=== PATIENT | female | born 1985 | race Caucasian/White ===

== ENCOUNTER 2020-01-15 13:59 | Emergency (ER) | payer SELFPAY ==
--- NOTE | 2020-01-15 14:00 | NUR ---
PT DOES NOT WANT TO STAY IF HER S/O COULD NOT STAY WITH HER AND SHE LEFT ACCORDING TO THE TECH.
[2020-01-15] MEDS ORDERED: HYOS0.1283 SL (15:57)
== END 2020-01-15 14:02 | disposition left against medical advice (07) ==
LOC: ER FS 14:01
DX: R10.9 Unspecified abdominal pain (principal)

== ENCOUNTER 2020-01-15 14:18 | Emergency (ER) | payer SELFPAY ==
[~2020-01-15] VITALS: Ht 157 cm; Wt 72.0 kg
[2020-01-15] MEDS ORDERED: fentaNYL INJECTION 100 MCG/2 ML AMP IVP ONE (14:45)
[2020-01-15] MEDS ORDERED: ONDANSETRON 4 MG/2 ML (SDV) Z0FRAN IVP ONE (14:45)
[2020-01-15 14:55] LABS: WHITE BLOOD COUNT 8.2 10^3/uL (4.3-11.0)
[2020-01-15 14:56] LABS: BASOPHILS # (AUTO) 0.1 10^3/uL (0.0-0.1); BASOPHILS % (AUTO) 1 % (0-10); EOSINOPHILS # (AUTO) 0.1 10^3/uL (0.0-0.3); EOSINOPHILS % (AUTO) 2 % (0-10); HEMATOCRIT 42 % (35-52); HEMOGLOBIN 14.5 G/DL (11.5-16.0); LYMPHOCYTES # (AUTO) 2.7 X 10^3 (1.0-4.0); LYMPHOCYTES % (AUTO) 33 % (12-44); MEAN CORPUSCULAR HEMOGLOBIN 30 PG (25-34); MEAN CORPUSCULAR HGB CONC 34 G/DL (32-36); MEAN CORPUSCULAR VOLUME 88 FL (80-99); MEAN PLATELET VOLUME 10.8 FL (7.4-10.4); MONOCYTES # (AUTO) 0.7 X 10^3 (0.0-1.0); MONOCYTES % (AUTO) 8 % (0-12); NEUTROPHILS # (AUTO) 4.6 X 10^3 (1.8-7.8); NEUTROPHILS % (AUTO) 56 % (42-75); PLATELET COUNT 273 10^3/uL (130-400)
[2020-01-15 14:59] LABS: BILIRUBIN,URINE NEGATIVE (NEGATIVE); CLARITY,URINE CLEAR; COLOR,URINE YELLOW; GLUCOSE, URINE (UA) NEGATIVE (NEGATIVE); KETONES,URINE NEGATIVE (NEGATIVE); LEUKOCYTE ESTERASE ,URINE NEGATIVE (NEGATIVE); NITRITE,URINE NEGATIVE (NEGATIVE); PROTEIN,URINE NEGATIVE (NEGATIVE)
[2020-01-15] MEDS ORDERED: IOHEXOL 350 MG/ML 100 ML (OMNIPAQUE 350) VIAL IV ONE (15:15)
[2020-01-15] MEDS ORDERED: NS 100 ML (IVPB) BAG IV ONE (15:15)
[2020-01-15] MEDS ORDERED: HOLD METFORMIN - RECEIVED CONTRAST 20 ML VIAL IV SCH (15:15)
[2020-01-15] MEDS ORDERED: CATHETER FLUSH 10 ML SYR IV PRN (15:15)
[2020-01-15 15:27] LABS: POTASSIUM 4.7 MMOL/L (3.6-5.0); SODIUM 138 MMOL/L (135-145)
[2020-01-15 15:28] LABS: ALANINE AMINOTRANSFERASE 17 U/L (0-55); ALBUMIN 4.3 GM/DL (3.2-4.5); ALKALINE PHOSPHATASE 100 U/L (40-136); BILIRUBIN,TOTAL 0.2 MG/DL (0.1-1.0); BUN/CREATININE RATIO 8; CALCIUM 9.1 MG/DL (8.5-10.1); CARBON DIOXIDE 25 MMOL/L (21-32); CHLORIDE 104 MMOL/L (98-107); GFR ESTIMATED > 60; GLUCOSE 91 MG/DL (70-105); LIPASE 41 U/L (8-78); TOTAL PROTEIN 6.9 GM/DL (6.4-8.2)
--- NOTE | 2020-01-15 15:35 | NUR ---
RESTING IN BED ET DENIES NEEDS AT THIS TIME.
--- NOTE | 2020-01-15 15:47 | Diagnostic Imaging Report ---
PROCEDURE: CT abdomen and pelvis with contrast. TECHNIQUE: Multiple contiguous axial images were obtained through the abdomen and pelvis after administration of intravenous contrast. Auto Exposure Controls were utilized during the CT exam to meet ALARA standards for radiation dose reduction. All CT scans use one or more of the following dose optimizing techniques: automated exposure control, MA and/or KvP adjustment based on patient size and exam type or iterative reconstruction. INDICATION: Right upper quadrant pain, history of cholecystectomy and partial hysterectomy. COMPARISON: None. FINDINGS: The lung bases are clear. The heart is normal in size. There is no pericardial effusion. The liver demonstrates no focal lesions. There is no intrahepatic biliary dilatation. The spleen appears normal. The pancreas is unremarkable. Cholecystectomy clips are noted. The adrenal glands appear normal. The kidneys appear normal with no hydronephrosis or solid masses seen. The bowel loops are nondistended without obstruction. The appendix is normal. No free fluid or free air is seen. There is no lymphadenopathy. No acute osseous abnormality is seen. IMPRESSION: No acute abnormality is seen in the abdomen and pelvis. Dictated by: Dictated on workstation # [id number]
--- NOTE | 2020-01-15 15:55 | ED GI ---
General Chief Complaint: Abdominal/GI Problems Stated Complaint: ABD PAIN; NAUSEA Nursing Triage Note: AMBULATED TO ROOM 05 WITH COMPLAINTS OF RIGHT UPPER ABD PAIN OFF AND ON X1 WEEK. TEARFUL ET SCARED. STATES SHE USE TO DRINK VODCA DAILY BUT HAS BEEN CLEAN FOR SEVERAL MONTHS. ALSO STATES SHE JUST FOUND OUT HER EX-BOYFRIEND IS HIV POSITIVE. Sepsis Screen: No Definite Risk History of Present Illness Date Seen by Provider: Jan 15, 2020 Time Seen by Provider: 14:40 Initial Comments 34-year-old female presents with intermittent right upper quadrant pain for the past one week. Some nausea without vomiting, denies diarrhea or constipation. Somewhat decreased appetite although eating without difficulty and no epigastric pain. Pain is sharp and waxes and wanes,, but goes away. Tells nurse that she is to drink heavily, but has quit drinking and also recently found out her ex-boyfriend has HIV and she is concerned about her own health now. Allergies and Home Medications Allergies Coded Allergies: No Known Drug Allergies (Unverified , 01/15/20) Home Medications No Active Prescriptions or Reported Meds Patient Home Medication List Home Medication List Reviewed: Yes Review of Systems Review of Systems Constitutional: see HPI; No dizziness, No fever, No malaise, No weakness Respiratory: Denies Cough, Denies Shortness of Air Cardiovascular: Denies Chest Pain, Denies Edema, Denies Lightheadedness Gastrointestinal: Denies Abdomen Distended; Abdominal Pain; Denies Constipated, Denies Diarrhea; Nausea, Poor Appetite; Denies Poor Fluid Intake, Denies Rectal Bleeding, Denies Vomiting Genitourinary: Denies Burning, Denies Discharge, Denies Frequency, Denies Flank Pain Musculoskeletal: No back pain, No joint pain Skin: No change in color, No rash Past Tehjpaf-Dxxcwd-Mevkes Hx Past Med/Social Hx: Reviewed Nursing Past Med/Soc Hx Patient Social History Alcohol Use: Past History Recreational Drug Use: No Smoking Status: Current Everyday Smoker Recent Foreign Travel: No Contact w/Someone Who Travel: No Recent Infectious Disease Expo: No Recent Hopitalizations: No Seasonal Allergies Seasonal Allergies: No Past Medical History Surgeries: Yes (partial hsyter) Gallbladder Respiratory: No Cardiac: No Neurological: No Genitourinary: No Gastrointestinal: No Musculoskeletal: No Endocrine: No HEENT: No Cancer: No Psychosocial: No Physical Exam Vital Signs Vital Signs - First Documented 01/15/20 14:25 Temp 36.9 Pulse 105 Resp 16 B/P (MAP) 62/ Pulse Ox 99 O2 Delivery Room Air Capillary Refill : Less Than 3 Seconds Height/Weight/BMI Height: '" Weight: lbs. oz. kg; 29.00 BMI Method: General Appearance: WD/WN, no apparent distress Respiratory: chest non-tender, lungs clear, normal breath sounds Cardiovascular: regular rate, rhythm, no edema, no gallop Gastrointestinal: normal bowel sounds, soft, no organomegaly, no pulsatile mass; No distended, No guarding, No rebound; tenderness (R upper quadrant and R flank without CVA TTP); No hernia, No mass, No hepatomegaly, No spleenomegaly Neurologic/Psychiatric: alert, normal mood/affect Skin: normal color, warm/dry Progress/Results/Core Measures Results/Orders Lab Results Laboratory Tests Test 01/15/20 14:35 Range/Units White Blood Count 8.2 4.3-11.0 10^3/uL Red Blood Count 4.79 4.35-5.85 10^6/uL Hemoglobin 14.5 11.5-16.0 G/DL Hematocrit 42 35-52 % Mean Corpuscular Volume 88 80-99 FL Mean Corpuscular Hemoglobin 30 25-34 PG Mean Corpuscular Hemoglobin Concent 34 32-36 G/DL Red Cell Distribution Width 12.1 10.0-14.5 % Platelet Count 273 130-400 10^3/uL Mean Platelet Volume 10.8 H 7.4-10.4 FL Immature Granulocyte % (Auto) 0 % Neutrophils (%) (Auto) 56 42-75 % Lymphocytes (%) (Auto) 33 12-44 % Monocytes (%) (Auto) 8 0-12 % Eosinophils (%) (Auto) 2 0-10 % Basophils (%) (Auto) 1 0-10 % Neutrophils # (Auto) 4.6 1.8-7.8 X 10^3 Lymphocytes # (Auto) 2.7 1.0-4.0 X 10^3 Monocytes # (Auto) 0.7 0.0-1.0 X 10^3 Eosinophils # (Auto) 0.1 0.0-0.3 10^3/uL Basophils # (Auto) 0.1 0.0-0.1 10^3/uL Immature Granulocyte # (Auto) 0.0 0.0-0.1 10^3/uL Urine Color YELLOW Urine Clarity CLEAR Urine pH 7.0 5-9 Urine Specific [place] 1.010 L 1.016-1.022 Urine Protein NEGATIVE NEGATIVE Urine Glucose (UA) NEGATIVE NEGATIVE Urine Ketones NEGATIVE NEGATIVE Urine Nitrite NEGATIVE NEGATIVE Urine Bilirubin NEGATIVE NEGATIVE Urine Urobilinogen 0.2 < = 1.0 MG/DL Urine Leukocyte Esterase NEGATIVE NEGATIVE Urine RBC (Auto) NEGATIVE NEGATIVE Urine RBC NONE /HPF Urine WBC NONE /HPF Urine Squamous Epithelial Cells 5-10 /HPF Urine Crystals NONE /LPF Urine Bacteria NONE /HPF Urine Casts NONE /LPF Urine Mucus NEGATIVE /LPF Urine Culture Indicated NO Urine Test NEGATIVE NEGATIVE Sodium Level 138 135-145 MMOL/L Potassium Level 4.7 3.6-5.0 MMOL/L Chloride Level 104 98-107 MMOL/L Carbon Dioxide Level 25 21-32 MMOL/L Anion Gap 9 5-14 MMOL/L Blood Urea Nitrogen 7 7-18 MG/DL Creatinine 0.90 0.60-1.30 MG/DL Estimat Glomerular Filtration Rate > 60 BUN/Creatinine Ratio 8 Glucose Level 91 70-105 MG/DL Calcium Level 9.1 8.5-10.1 MG/DL Corrected Calcium 8.9 8.5-10.1 MG/DL Total Bilirubin 0.2 0.1-1.0 MG/DL Aspartate Amino Transf (AST/SGOT) 15 5-34 U/L Alanine Aminotransferase (ALT/SGPT) 17 0-55 U/L Alkaline Phosphatase 100 40-136 U/L Total Protein 6.9 6.4-8.2 GM/DL Albumin 4.3 3.2-4.5 GM/DL Lipase 41 8-78 U/L My Orders Orders - ROVENSTKARON BUCKNER L DO Ct Abdomen/Pelvis W (01/15/20 14:41) Ed Iv/Invasive Line Start (01/15/20 14:41) Cbc With Automated Diff (01/15/20 14:41) Comprehensive Metabolic Panel (01/15/20 14:41) Urinalysis (01/15/20 14:41) Lipase (01/15/20 14:41) Hcg,Qualitative Urine (01/15/20 14:41) Fentanyl Injection (Sublimaze Injection (01/15/20 14:45) Ondansetron Injection (Zofran Injectio (01/15/20 14:45) Iohexol Injection (Omnipaque 350 Mg/Ml 1 (01/15/20 15:15) Received Contrast (Hold Metformin- Contr (01/15/20 15:15) Sodium Chloride Flush (Catheter Flush Sy (01/15/20 15:15) Ns (Ivpb) (Sodium Chloride 0.9% Ivpb Bag (01/15/20 15:15) Medications Given in ED Current Medications Medications Dose Ordered Sig/Atilio Route Start Time Stop Time Status Last Admin Dose Admin Fentanyl Citrate 50 mcg ONCE ONCE IVP 01/15/20 14:45 01/15/20 14:46 DC 01/15/20 14:50 50 MCG Iohexol 100 ml ONCE ONCE IV 01/15/20 15:15 01/15/20 15:16 DC 01/15/20 15:28 100 ML Ondansetron HCl 4 mg ONCE ONCE IVP 01/15/20 14:45 01/15/20 14:46 DC 01/15/20 14:51 4 MG Sodium Chloride 10 ml NEEDED PRN IV 01/15/20 15:15 01/15/20 15:27 10 ML Sodium Chloride 100 ml ONCE ONCE IV 01/15/20 15:15 01/15/20 15:16 DC 01/15/20 15:28 80 ML Vital Signs/I&O 01/15/20 14:25 Temp 36.9 Pulse 105 Resp 16 B/P (MAP) 62/ Pulse Ox 99 O2 Delivery Room Air Diagnostic Imaging Diagonstic Imaging: CT Comments FINDINGS: The lung bases are clear. The heart is normal in size. There is no pericardial effusion. The liver demonstrates no focal lesions. There is no intrahepatic biliary dilatation. The spleen appears normal. The pancreas is unremarkable. Cholecystectomy clips are noted. The adrenal glands appear normal. The kidneys appear normal with no hydronephrosis or solid masses seen. The bowel loops are nondistended without obstruction. The appendix is normal. No free fluid or free air is seen. There is no lymphadenopathy. No acute osseous abnormality is seen. IMPRESSION: No acute abnormality is seen in the abdomen and pelvis. Dictated by: Dictated on workstation # [id number] Dict: 01/15/20 1542 Trans: 01/15/20 1548 [id number] Interpreted by: BRANDI HDZ MD Electronically signed by: BRANDI HDZ MD 01/15/20 1548 Departure Impression Primary Impression: Abdominal pain Qualified Codes: R10.11 - Right upper quadrant pain Disposition: 01 HOME, SELF-CARE Condition: Stable Departure-Patient Inst. Decision time for Depature: 15:56 Referrals: [facility] [place]YSIC[place] (PCP) Primary Care Physician Patient Instructions: Severe Abdominal Pain, Adult (DC) Add. Discharge Instructions: establish a PCP (locally) for follow up care in 1wk, ER sooner if worse. All discharge instructions reviewed with patient and/or family. Voiced understanding. Scripts Hyoscyamine Sulfate (Levsin-Sl) 0.125 Mg Tab.subl 0.125 MG SL Q4H, #12 TAB 0 Refills Prov: KARON COPE DO 01/15/20 KARON COPE DO Jan 15, 2020 15:55
[2020-01-15] MEDS ORDERED: HYOS0.1283 SL (15:57)
--- NOTE | 2020-01-15 15:58 | NUR ---
IN TO TALK TO THE PT.
[2020-01-15 16:02] VITALS: BP 107/54
== END 2020-01-15 16:02 | disposition home or self-care (01) ==
LOC: EDUNIT# 14:18 → ER FS 14:19
DX: R10.11 Right upper quadrant pain (principal); F17.200 Nicotine dependence, unspecified, uncomplicated
CPT/HCPCS: 36415; 74177; 80053; 81000; 83690; 84703; 85025